=== PATIENT | male | born 1975 ===

== ENCOUNTER 2021-10-24 11:49 | Emergency (ER) | payer SELFPAY ==
[~2021-10-24] VITALS: Ht 177.8 cm; Wt 93.0 kg
[2021-10-24 12:11] VITALS: BP 123/83; TEMP 97.1
[2021-10-24 13:20] LABS: BASO % 0.4 % (0.0-2.0); EOS # 0.1 K/mm3 (0.0-0.7); EOS % 1.9 % (0.0-4.0); GRAN # 5.4 K/mm3 (1.4-6.5); GRAN % 71.6 % (42.2-75.2); HEMATOCRIT 39.7 % (42.0-52.0); HEMOGLOBIN 14.7 g/dl (13.5-18.0); LYMPH # 1.2 K/mm3 (1.2-3.4); LYMPH % 16.3 % (20.0-51.0); MEAN CELL VOLUME 90 fl (80.0-100.0); MEAN CORPUSCULAR HEMOGLOBIN 34 pg (27-31); MEAN CORPUSCULAR HGB CONC 37 g/dl (33.0-37.0); MEAN PLATELET VOLUME 10.5 fl (7.4-10.4); MONO # 0.7 K/mm3 (0.1-0.6); MONO % 9.5 % (1.7-9.3); PLATELET COUNT 160 K/mm3 (130-400); RED BLOOD COUNT 4.39 M/mm3 (4.20-5.60); REDCELL DISTRIBUTION WIDTH-CV 12.6 % (11.5-14.5)
[2021-10-24 13:38] LABS: ALBUMIN 4.1 gm/dL (3.5-5.0); BILIRUBIN,TOTAL 1.5 mg/dL (0.2-1.2); CALCIUM 8.7 mg/dL (8.4-10.2); CREATININE, serum 0.85 mg/dL (0.72-1.25); POTASSIUM 4.1 mmol/L (3.5-4.5); TOTAL PROTEIN 6.4 gm/dL (6.2-8.1)
[2021-10-24] MEDS ORDERED: LOVENOX 8080 MG/0.8 SQ (15:01)
[2021-10-24 15:22] VITALS: PULSE 87
== END 2021-10-24 15:22 | disposition home or self-care (01) ==
LOC: COL.ER 11:49
PROVIDERS: Nurse Practitioner Family
DX: I82.402 Acute embolism and thrombosis of unspecified deep veins of left lower extremity (principal); R79.1 Abnormal coagulation profile; F17.200 Nicotine dependence, unspecified, uncomplicated
CPT/HCPCS: J1650

== ENCOUNTER → 2021-10-26 | Outpatient (CLI) | payer SELFPAY ==
[~2021-10-26] MED LIST: LOVENOX 8080 MG/0.8 SQ
== END ==
LOC: COL.VAS 08:49
DX: I82.409 Acute embolism and thrombosis of unspecified deep veins of unspecified lower extremity (principal)